=== PATIENT | male | born 1980 | race Caucasian/White ===

== ENCOUNTER 2017-07-02 09:28 | Day surgery (SDC) | payer BC ==
[2017-07-02] MEDS ORDERED: NALOXONE HCL 0.4 MG/ML INJ IVP PRN (10:01)
[2017-07-02] MEDS ORDERED: PROTAMINE SULFATE 50 MG/5 ML VIAL IVP PRN (10:01)
[2017-07-02] MEDS ORDERED: MEPERIDINE 25 MG/ML SYR IVP PRN (10:01)
[2017-07-02] MEDS ORDERED: FLUMAZENIL 0.5 MG/5 ML MDV IVP PRN (10:01)
[2017-07-02] MEDS ORDERED: MIDAZOLAM 2 MG/2 ML VIAL IVP PRN (10:01)
[2017-07-02] MEDS ORDERED: HEPARIN 10,000 UNIT/10 ML MDV IVP PRN (10:01)
[2017-07-02] MEDS ORDERED: ALTEPLASE 2 MG VIAL IVP PRN (10:01)
[2017-07-02] MEDS ORDERED: fentaNYL 100 MCG/2 ML INJ IVP PRN (10:01)
[2017-07-02] MEDS ORDERED: GLUCAGON HCL 1 MG VIAL IVP PRN (10:01)
[2017-07-02 10:12] VITALS: PULSE 77; RESP 16; TEMP 98.8
[2017-07-02] MEDS ORDERED: NS 1,000 ML IV SCH (10:15)
[2017-07-02] MEDS ORDERED: FLUMAZENIL 0.5 MG/5 ML MDV IVP ONE (11:15)
[2017-07-02] MEDS ORDERED: fentaNYL 100 MCG/2 ML INJ ONE (11:15)
[2017-07-02] MEDS ORDERED: MIDAZOLAM 2 MG/2 ML VIAL ONE (11:15)
[2017-07-02] MEDS ORDERED: ONDANSETRON 4 MG/2 ML VIAL ONE (11:15)
[2017-07-02] MEDS ORDERED: NALOXONE HCL 0.4 MG/ML INJ ONE (11:15)
--- NOTE | 2017-07-02 11:40 | PDGENHP ---
History & Physical Chief Complaint: RUE swelling History of Present Illness: 37 yo M w no significant PMH presents following an episode of signficant RUE swelling that began following yoga 2.5 wks ago. RUE DVT US and MRI were negative for thrombosis. Pt seen by Dr. Perez. 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 Swelling gradually improving. Recently placed on Pradaxa (held last night and this am). Referred to IR for venography and possible intervention. Pertinent Past, Social, Family History: Yoga 5 days/wk x 17 yrs Relevant Physical Exam: Mild RUE and shoulder swelling Cardiorespiratory Assessment: RRR, normal resp effort
--- NOTE | 2017-07-02 11:42 | PDPROPOC ---
Sedation Plan of Care Sedation Plan of Care: vital signs stable, mental status noted, patient educated of risks, benefits, alternatives, patient can tolerate sedation ASA Classification: ASA 1 Planned drugs: fentanyl, midazolam Mallampati Score: Class 1 Mallampati Reference Image: Patient passed 3-3-2 rule?: Yes
[2017-07-02 11:52] VITALS: O2SAT 98
[2017-07-02 12:11] VITALS: BP 108/64
[2017-07-02] MEDS ORDERED: IOPAMIDOL (ISOVUE-300) 100 ML BTL ONE (12:13)
--- NOTE | 2017-07-02 12:25 | PDRADPN ---
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 This was an unexpected fiunding given a negative DVT US two weeks ago and relatively mild upper extremity swelling on pre procedure physical exam. Basilic vein appears patent at elbow. Brachial is diminutive and the cephalic is not identified above the elbow. Pt needs catheter-directed thrombolysis, but Pradaxa held for only 24 hours, so procedure was aborted. Plan to return to tomorrow for venogram and thrombolysis around 1430 hrs after Pradaxa will have been held for a total of [address] Perez at 1205 hrs today, who agrees with the above plan. Inf/Abcess present in the surg proc area at time of surgery?: No
== END 2017-07-02 12:28 | disposition home or self-care (01) ==
LOC: FLAB 09:28 → FIMAGING 12:28
PROVIDERS: ATTEND Surgery
DX: Z53.8 Procedure and treatment not carried out for other reasons (principal); I82.621 Acute embolism and thrombosis of deep veins of right upper extremity
CPT/HCPCS: J1644; J2250; J2310; J2405; J3010; Q9967

== ENCOUNTER 2017-07-03 13:10 | Inpatient (IN) | payer BC ==
[2017-07-03] MEDS ORDERED: MEPERIDINE 25 MG/ML SYR IVP PRN (14:01)
[2017-07-03] MEDS ORDERED: PROTAMINE SULFATE 50 MG/5 ML VIAL IVP PRN (14:01)
[2017-07-03] MEDS ORDERED: ALTEPLASE 2 MG VIAL IVP PRN (14:01)
[2017-07-03] MEDS ORDERED: FLUMAZENIL 0.5 MG/5 ML MDV IVP PRN (14:01)
[2017-07-03] MEDS ORDERED: MIDAZOLAM 2 MG/2 ML VIAL IVP PRN (14:01)
[2017-07-03] MEDS ORDERED: NALOXONE HCL 0.4 MG/ML INJ IVP PRN ×2 (14:01→18:29)
[2017-07-03] MEDS ORDERED: GLUCAGON HCL 1 MG VIAL IVP PRN (14:01)
[2017-07-03] MEDS ORDERED: HEPARIN 10,000 UNIT/10 ML MDV IVP PRN (14:01)
--- NOTE | 2017-07-03 15:21 | PDGENHP ---
History & Physical Chief Complaint: DVT right arm History of Present Illness: Swelling for 3 1/2 weeks. Initial US at [facility] negative. Now with DVT. Relevant Physical Exam: Mild swelling of right arm. Good pulses and capillary refill. Cardiorespiratory Assessment: Lungs: clear to auscultation. Heart: RRR, no murmur, 60 bpm.
--- NOTE | 2017-07-03 15:21 | PDPROPOC ---
Sedation Plan of Care Sedation Plan of Care: vital signs stable, mental status noted, patient educated of risks, benefits, alternatives, patient can tolerate sedation ASA Classification: ASA 2 Planned drugs: fentanyl, midazolam Mallampati Score: Class 2 Mallampati Reference Image: Patient passed 3-3-2 rule?: Yes
[2017-07-03] MEDS: fentaNYL 100 MCG/2 ML INJ IVP PRN (15:37)
[2017-07-03] MEDS ORDERED: HEPARIN/DEXTROSE 25,000 UNIT/500 ML BAG ONE (16:14)
[2017-07-03] MEDS ORDERED: IOPAMIDOL (ISOVUE-300) 100 ML BTL ONE (16:16)
[2017-07-03] MEDS ORDERED: ALTEPLASE 5 MG in NS 100 ML IV SCH (16:30)
--- NOTE | 2017-07-03 16:46 | PDRADPN ---
Radiology Procedure Note Date of Procedure: 07/03/17 Radiologist: Navjot Mendoza Anesthesia: IV Sedation Pre-op Diagnosis: DVT RUE Post-op Diagnosis: Same Indication: Swelling, central DVT including subclavian and axillary veins Procedure: Catheter-directed venous thrombolysis of RUE Finding(s): Thrombosed right basilic, axillary and subclavian veins. Inf/Abcess present in the surg proc area at time of surgery?: No EBL: Minimal Complications: 0
[2017-07-03] MEDS ORDERED: LORazepam 1 MG TAB PO PRN (17:37)
[2017-07-03] MEDS ORDERED: ONDANSETRON 4 MG/2 ML VIAL IVP PRN (17:37)
[2017-07-03] MEDS ORDERED: HEPARIN/DEXTROSE 500 ML IV SCH (17:37)
[2017-07-03] MEDS ORDERED: BISACODYL 10 MG SUPP PR PRN (18:31)
[2017-07-03] MEDS ORDERED: MAGNESIUM HYDROXIDE 30 ML UDCUP PO PRN (18:31)
[2017-07-03] MEDS ORDERED: HYDROmorphONE/DILAUDID 6 MG/30 ML PCA IV ONE (18:33)
[2017-07-03] MEDS: HYDROmorphONE/DILAUDID 6 MG/30 ML PCA IV PRN (18:52)
[2017-07-03] MEDS: SENNOSIDES/DOCUSATE SODIUM TAB PO SCH (20:34)
[2017-07-03] MEDS: ALTEPLASE 5 MG in NS 100 ML IV SCH (20:51)
[2017-07-03] MEDS: PROMETHAZINE HCL 25 MG/ML INJ IVP PRN (20:55)
[2017-07-03 21:58] LABS: % IMMATURE GRANULYOCYTES 0.3 % (0.0-1.1); ABSOLUTE IMMATURE GRANULOCYTES 0.04 10^3/uL (0.00-0.10); ADD DIFF? NO; ADD MORPH? NO; ADD SCAN? NO; ATYPICAL LYMPHOCYTE FLAG 0 (0-99); FRAGMENT RBC FLAG 0 (0-99); HEMATOCRIT 42.6 % (40.0-51.0); HEMOGLOBIN 15.1 g/dL (13.7-17.5); LEFT SHIFT FLG 0 (0-99); LIPEMIA HEMOLYSIS FLAG 90 (0-99); MEAN CELL HEMOGLOBIN 31.9 pg (27.9-34.1); MEAN CELL HEMOGLOBIN CONCENTR. 35.4 g/dL (32.4-36.7); MEAN CELL VOLUME 89.9 fL (81.5-99.8); MEAN PLATELET VOLUME 10.4 fL (8.7-11.7); PLATELET CLUMPS FLAG 50 (0-99); PLATELET COUNT 219 10^3/uL (150-400); RED BLOOD CELL COUNT 4.74 10^6/uL (4.40-6.38)
[2017-07-03 22:15] LABS: CREATININE 0.9 mg/dL (0.7-1.3); GLOMERULAR FILTRATION RATE > 60
[2017-07-03 23:20] LABS: INR 1.25 (0.83-1.16); PROTIME(PATIENT) 15.9 SEC (12.0-15.0)
[2017-07-03 23:21] LABS: APTT 41.6 SEC (23.0-38.0)
[2017-07-04] MEDS: ALTEPLASE 5 MG in NS 100 ML IV SCH (02:54)
[2017-07-04 06:11] LABS: % IMMATURE GRANULYOCYTES 0.3 % (0.0-1.1); ABSOLUTE IMMATURE GRANULOCYTES 0.02 10^3/uL (0.00-0.10); ADD DIFF? NO; ADD MORPH? NO; ADD SCAN? NO; ATYPICAL LYMPHOCYTE FLAG 0 (0-99); FRAGMENT RBC FLAG 0 (0-99); HEMATOCRIT 42.5 % (40.0-51.0); HEMOGLOBIN 15.2 g/dL (13.7-17.5); LEFT SHIFT FLG 0 (0-99); LIPEMIA HEMOLYSIS FLAG 90 (0-99); MEAN CELL HEMOGLOBIN 32.8 pg (27.9-34.1); MEAN CELL HEMOGLOBIN CONCENTR. 35.8 g/dL (32.4-36.7); MEAN CELL VOLUME 91.8 fL (81.5-99.8); MEAN PLATELET VOLUME 10.6 fL (8.7-11.7); PLATELET CLUMPS FLAG 20 (0-99); PLATELET COUNT 200 10^3/uL (150-400); RED BLOOD CELL COUNT 4.63 10^6/uL (4.40-6.38)
[2017-07-04 06:29] LABS: APTT 46.5 SEC (23.0-38.0)
[2017-07-04] MEDS: SENNOSIDES/DOCUSATE SODIUM TAB PO SCH ×2 (07:52→23:17)
[2017-07-04] MEDS: HYDROmorphONE/DILAUDID 6 MG/30 ML PCA IV PRN (11:53)
[2017-07-04] MEDS ORDERED: fentaNYL 100 MCG/2 ML INJ ONE (12:32)
[2017-07-04] MEDS ORDERED: fentaNYL 100 MCG/2 ML INJ IVP PRN (12:39)
[2017-07-04] MEDS ORDERED: NALOXONE HCL 0.4 MG/ML INJ IVP PRN (12:39)
--- NOTE | 2017-07-04 12:39 | SOAPPROG ---
HEIDY Progress Note Assessment/Plan: Assessment: 37-year-old male with extensive right upper extremity DVT Underwent catheter embolization of venous thrombosis yesterday, going back to interventional Radiology today. Reports that he feels like blood flow was increasing in his right arm, swelling decreased. Using Dilaudid for pain. Comfortable, alert Right upper extremity with mild edema Plan: Seen examined by Dr. Stallworth, consult to follow. Plan is to await further interventional procedures, possibly continue anticoagulation and undergo 1st rib resection at a later date. Plan briefly discussed with patient. 07/04/17 12:37 Objective: Vital Signs Temp Pulse Resp BP Pulse Ox 36.5 C 62 14 115/70 92 07/04/17 11:57 07/04/17 12:28 07/04/17 12:28 07/04/17 12:28 07/04/17 12:28 Laboratory Results 07/04/17 05:45 07/03/17 21:30 07/03/17 07/04/17 07/05/17 05:59 05:59 05:59 Intake Total 2888.3 Output Total 1050 Balance 1838.3 PT 15.9 SEC (12.0-15.0) H 07/03/17 22:30 INR 1.25 (0.83-1.16) H 07/03/17 22:30 ICD10 Worksheet Patient Problems: Problems Problem Status Onset DVT of axillary vein, acute right Acute
[2017-07-04] MEDS: fentaNYL 100 MCG/2 ML INJ IVP PRN (12:43)
[2017-07-04] MEDS ORDERED: NS 1,000 ML IV SCH (12:45)
--- NOTE | 2017-07-04 13:27 | PDRADPN ---
Radiology Procedure Note Date of Procedure: 07/04/17 Radiologist: Navjot Mendoza Pre-op Diagnosis: DVT Right UE Post-op Diagnosis: Same Indication: Assess thrombolysis Procedure: Venography and catheter exchange Finding(s): 70% lysis of DVT. Residual axillary/subclavian clot. 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 We exchanged for a shorter EKOS infusion catheter and will reduce infusion rate to 0.5 mg/hr because of fibrinogen decrease to 102. Inf/Abcess present in the surg proc area at time of surgery?: No EBL: Minimal Complications: 0
--- NOTE | 2017-07-04 15:28 | ASMTCMCOM ---
CM Note CM Note Notes: Pt. is a 37-year-old man admitted for a DVT in his R arm. Going to IR today. Pt. lives w/ his Manda. SWer consulted w/ bedside RN. RN states Pt. will be independent at d/c. CM available should d/c POC change. Date Signed: 07/04/2017 03:28 PM Electronically Signed By:Maryuri Wolf LCSW
[2017-07-04 18:34] LABS: APTT 44.1 SEC (23.0-38.0)
[2017-07-04 20:20] LABS: FIBRINOGEN < 60 mg/dL (214-456)
[2017-07-04] MEDS: PROMETHAZINE HCL 25 MG/ML INJ IVP PRN (23:16)
[2017-07-05 00:39] LABS: APTT 64.3 SEC (23.0-38.0)
[2017-07-05 06:37] LABS: APTT 36.1 SEC (23.0-38.0)
[2017-07-05] MEDS ORDERED: FLUMAZENIL 0.5 MG/5 ML MDV IVP PRN (07:46)
[2017-07-05] MEDS ORDERED: MEPERIDINE 25 MG/ML SYR IVP PRN (07:46)
[2017-07-05] MEDS ORDERED: fentaNYL 100 MCG/2 ML INJ IVP PRN (07:46)
[2017-07-05] MEDS ORDERED: MIDAZOLAM 2 MG/2 ML VIAL IVP PRN (07:46)
[2017-07-05] MEDS ORDERED: HEPARIN 10,000 UNIT/10 ML MDV ONE (09:09)
[2017-07-05] MEDS ORDERED: IOPAMIDOL (ISOVUE-300) 100 ML BTL ONE (09:55)
--- NOTE | 2017-07-05 09:58 | PDRADPN ---
Radiology Procedure Note Date of Procedure: 07/05/17 Radiologist: Navjot Mendoza Anesthesia: Other (Specify) (IV fentanyl) Pre-op Diagnosis: DVT RUE Post-op Diagnosis: Resolved. Indication: Assess thrombolysis of RUE Procedure: Venography with positional maneuvers Finding(s): Resolution of venous thrombus in RUE. Severe stenosis of right subclavian vein Inf/Abcess present in the surg proc area at time of surgery?: No EBL: Minimal Complications: 0
[2017-07-05] MEDS ORDERED: HEPARIN 10,000 UNIT/10 ML MDV IVP PRN (10:01)
[2017-07-05] MEDS: HYDROmorphONE/DILAUDID 6 MG/30 ML PCA IV PRN (10:49)
[2017-07-05] MEDS: HEPARIN/DEXTROSE 500 ML IV SCH (11:00)
[2017-07-05] MEDS: SENNOSIDES/DOCUSATE SODIUM TAB PO SCH (14:55)
[2017-07-06] MEDS: HYDROmorphONE/DILAUDID 6 MG/30 ML PCA IV PRN (00:52)
[2017-07-06] MEDS: PROMETHAZINE HCL 25 MG/ML INJ IVP PRN (00:53)
[2017-07-06] MEDS: HEPARIN/DEXTROSE 500 ML IV SCH (02:30)
[2017-07-06 05:34] VITALS: TEMP 98.7
[2017-07-06] MEDS: SENNOSIDES/DOCUSATE SODIUM TAB PO SCH ×2 (05:44→09:37)
[2017-07-06] MEDS ORDERED: HYDROCODONE/APAP 5/325 TAB PO PRN (09:06)
[2017-07-06 10:56] VITALS: RESP 12; O2SAT 95
[2017-07-06 11:00] VITALS: PULSE 65
[2017-07-06] MEDS ORDERED: APIXABAN 5 MG TAB PO SCH (11:45)
[2017-07-06] MEDS ORDERED: APIXABAN 5 MG TAB PO ONE (12:00)
[2017-07-06 12:50] VITALS: BP 125/67
--- NOTE | 2017-07-06 13:21 | SOAPPROG ---
HEIDY Progress Note Assessment/Plan: Assessment: Right arm doing very well although still severe stenosis of the subclavian vein/ risks and options again fully discussed the patient Plan: Home a anticoagulation/right 1st rib resection and 3 weeks 07/06/17 13:20 Objective: Vital Signs Temp Pulse Resp BP Pulse Ox 37.1 C 65 12 125/67 H 95 07/06/17 02:00 07/06/17 12:00 07/06/17 12:00 07/06/17 12:00 07/06/17 12:00 Laboratory Results 07/04/17 05:45 07/03/17 21:30 07/05/17 07/06/17 07/07/17 05:59 05:59 05:59 Intake Total 1349 2398 Output Total 2900 3500 425 Balance -1551 -1102 -425 PT 15.9 SEC (12.0-15.0) H 07/03/17 22:30 INR 1.25 (0.83-1.16) H 07/03/17 22:30 ICD10 Worksheet Patient Problems: Problems Problem Status Onset DVT of axillary vein, acute right Acute
== END 2017-07-06 13:45 | disposition home or self-care (01) | DRG 272 ==
LOC: FIMAGING 13:10 → F2N 16:45
PROVIDERS: ADMIT Surgery; ATTEND Surgery
PROC: 03C Upper Arteries, Extirpation (ICD-10-PCS; principal; 2017-07-03)
PROC: 03C53ZZ Extirpation of Matter from Right Axillary Artery, Percutaneous Approach (ICD-10-PCS; principal; 2017-07-03)
PROC: B51M1ZA Fluoroscopy of Right Upper Extremity Veins using Low Osmolar Contrast, Guidance (ICD-10-PCS; 2017-07-04)
PROC: B51M1ZA Fluoroscopy of Right Upper Extremity Veins using Low Osmolar Contrast, Guidance (ICD-10-PCS; 2017-07-05)
DX: I82.B11 Acute embolism and thrombosis of right subclavian vein (principal); I70.8 Atherosclerosis of other arteries
CPT/HCPCS: 85520-90; C1757; C1769; C1894; J1170; J1644; J2250; J2310; J2405; J2550; J2997; J3010; Q9967

== ENCOUNTER 2017-07-07 17:56 | Emergency (ER) | payer BC ==
[2017-07-07 18:02] VITALS: TEMP 98.6
[2017-07-07] MEDS ORDERED: NS 1,000 ML IV ONE (18:15)
[2017-07-07] MEDS ORDERED: IOPAMIDOL (ISOVUE 370) 100 ML BTL IV ONE (18:22)
--- NOTE | 2017-07-07 18:23 | EDPHY ---
H & P Time Seen by Provider: 07/07/17 18:03 HPI/ROS: HPI Shortness of breath. 37-year-old male by private vehicle with his . This patient was just recently admitted and treated at our hospital for a right upper extremity subclavian DVT. He was just discharged 2 days ago. He is currently on Eliquis. 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 He is to have surgery to free impingement on his subclavian vein by Dr. Todd Stallworth in the next couple of weeks. He underwent a interventional radiology procedure by Dr. Navjot Mendoza treat and removed the clot. He reports that he felt well yesterday but today noticed that he felt short of breath. He reports that this is worse with exertion. He denies any chest pain or chest discomfort. No cough. No fever. No other complaint. ROS: Constitutional: No fever, no chills. No weakness. Eyes: No discharge. No changes in vision. ENT: No sore throat. No nasal congestion or rhinorrhea. Respiratory: No cough. As above. Cardiac: No chest pain, no palpitations. Gastrointestinal: No abdominal pain, no vomiting, no diarrhea. Genitourinary: No hematuria. No dysuria or increased frequency with urination. Musculoskeletal: No back pain. No neck pain. No myalgias or arthralgias. Skin: No rashes. Neurological: No headache. No focal weakness or altered sensation. Past medical history: No other significant past medical history. As above. Social history: Nonsmoker. No alcohol. Here with his . Physical Exam: General Appearance: Alert, no distress. This patient is responding to questions appropriately and in full sentences. This patient appears well- hydrated and well-nourished. Eyes: Pupils equal and round no pallor or injection. No lid edema, erythema or injection. Respiratory: There are no retractions, lungs are clear to auscultation with good air movement bilaterally. Cardiovascular: Regular rate and rhythm. No murmur. Neurological: Motor sensory function is grossly intact. Cranial nerves are normal. Gait is normal. Skin: Warm and dry, no rashes. Musculoskeletal: Neck is supple and nontender. Extremities are symmetrical. All joints range without pain or impingement. Psychiatric: No agitation. No depression. Database: EKG: EKG time is 7:15 p.m.; EKG shows a narrow complex normal sinus rhythm with a ventricular rate of 75. The LA, QRS, QT intervals are within normal limits. There are no ST-T wave changes indicative of ischemic or injury pattern. No evidence of right heart strain. Interpreted by me. Imaging: CT angiogram of chest: Very small right lower lobe pulmonary embolism measuring 2-3 mm. Doubtful this is a source of the patient's shortness of breath. No other significant findings that are acute. Extensive collateralization from chronic subclavian clot on the right. Otherwise negative. Results were discussed with staff radiologist Dr. Kevin Booker. Procedures: Emergency department course: Medical record reviewed. He has a normal creatinine of 0.9 from just a couple of days ago. An IV was started. Vital signs reviewed and are normal. He was started on IV normal saline with 1000 cc to be given over the next hour. He will be sent for CT angiogram of his chest to evaluate for pulmonary embolism. 7:35 p.m., patient re-evaluated. Resting comfortably at this time. Vital signs reviewed and are normal. Results of CT scan discussed with him and his . Plan will be to discharge to home. He will follow up with his surgeon for further management as noted above. He has been instructed to continue his Eliquis as prescribed. Return to emergency department precautions reviewed with him. All of his questions were answered. He was discharged in good condition. 8:00 p.m., informed by staff radiologist Dr. Kevin Booker of late finding on CT scan, small spiculated nodule right upper lobe. Dr. Ahuja advises noncontrast CT in 6 months for follow-up. Patient was contacted by our nursing staff and made aware of this. Differential Diagnosis: The differential diagnosis on this patient includes but is not limited to pulmonary embolism, pleurisy, musculoskeletal pain. Acute coronary syndrome, pneumonia, pneumothorax unlikely. This represents a partial list of diagnoses considered. These considerations are based on history, physical exam, past history, reassessment and diagnostic testing. Smoking Status: Former smoker Constitutional: Initial Vital Signs Temperature (C) 37 C 07/07/17 17:59 Heart Rate 75 12 17:59 Respiratory Rate 18 12 17:59 Blood Pressure 114/78 12 17:59 O2 Sat (%) 95 12/10/17 17:59 O2 Delivery Mode Room Air Allergies/Adverse Reactions: No Known Allergies Allergy (Verified 07/07/17 17:59) Home Medications: Medication Instructions Recorded Apixaban [Eliquis] 5 mg PO BID #30 tab 07/06/17 Hydrocodone/APAP 5/325 [[place] 1 - 2 tab PO Q4H PRN #20 tab 07/06/17 5/325 (*)] Medical Decision Making - Data Points Medications Given: Discontinued Medications Sodium Chloride (Ns) 1,000 mls @ 0 mls/hr IV EDNOW ONE; Wide Open PRN Reason: Protocol Stop: 07/07/17 18:16 Last Admin: 07/07/17 18:36 Dose: 1,000 mls Departure - Departure Disposition: Home, Routine, Self-Care Clinical Impression: Dyspnea, History of right subclavian vein DVT, Pulmonary embolism Condition: Good Instructions: Deep Venous Thrombosis (ED) Additional Instructions: Read and follow provided instructions. Follow-up with Dr. Todd Stallworth as scheduled for further management. Take Eliquis as prescribed. Return to the emergency department for worsening symptoms, worsening shortness of breath, chest pain, fever or other serious concerns. Referrals: Navjot Stallworth MD [Medical Doctor] - As per Instructions
--- NOTE | 2017-07-07 19:17 | CPEKG ---
Heart Rate: 75 RR Interval: 800 P-R Interval: 148 QRSD Interval: 108 QT Interval: 392 QTC Interval: 438 P [place]: -3 QRS [place]: 83 T Wave [place]: 31 EKG Severity - NORMAL ECG - EKG Impression: SINUS RHYTHM Electronically Signed By: Abdirizak Meng 07-Jul-2017 20:35:32
[2017-07-07 19:43] VITALS: BP 130/78; PULSE 61; RESP 20; O2SAT 96
== END 2017-07-07 19:49 | disposition home or self-care (01) ==
DX: I26.99 Other pulmonary embolism without acute cor pulmonale (principal); E86.9 Volume depletion, unspecified; Z86.718 Personal history of other venous thrombosis and embolism; Z87.891 Personal history of nicotine dependence
CPT/HCPCS: Q9967

== ENCOUNTER 2017-07-26 05:37 | Inpatient (IN) | payer BC ==
--- NOTE | 2017-07-23 18:21 | GCON ---
[f rep st] CONSULTATION DATE OF CONSULTATION: 07/04/2017 REASON FOR CONSULTATION: The patient is a 37-year-old male, who presented with a markedly swollen right arm, was found to have a significant DVT involving the brachial vein and axillary and subclavian veins. He had a previous evaluation 2 -1/2 weeks ago, which was negative for clot and has been on Pradaxa. He is admitted at this time for thrombolysis and evaluation. PAST MEDICAL/SURGICAL HISTORY: No other major medical issues or surgeries. REVIEW OF SYSTEMS: Reveals no other major medical problems on a full 10-point review of systems. Specifically, he is a nonsmoker. Denies any cardiopulmonary issues or symptoms. ALLERGIES: None. MEDICATIONS: Pradaxa. PHYSICAL EXAMINATION: GENERAL: An alert, healthy 37-year-old male, who is in no acute distress, but is somewhat anxious about his situation. VITAL SIGNS: He is afebrile. HEENT: Reveals some dilated veins in the supraclavicular area. He has no adenopathy, no thyromegaly, and no oral lesions. Pupils are normal. NECK: Supple with full range of motion, nontender. CHEST: Clear to auscultation and percussion. CARDIAC: Regular rhythm. ABDOMEN: Soft and nontender. EXTREMITIES: Reveal full range of motion, full pulses. His right arm is somewhat swollen and difficult to examine because of the obvious thrombolytics running in his right arm. He has some persistent swelling, although the patient relates that it is much less than it was. 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 I would recommend a 1st rib resection in 3-4 weeks after his damage from his deep venous thromboses is somewhat mitigated. He fully understands and accepts the risks of surgery and requests that we proceed down the line. He would, in fact, like to do it much sooner, but I have recommended that we allow some of the inflammation to resolve before going into surgery. If he should reclot in the interim, then I think he should have a 1st rib resection prior to repeat thrombolysis, although that would certainly still have some risk involved. We will follow him as an outpatient. /[id number]/MODL MTDD
[2017-07-26] MEDS ORDERED: ceFAZolin 2 GM/SWFI 2 GM/20 ML SYR IVP ONE (05:47)
[2017-07-26] MEDS ORDERED: LIDOCAINE 1% 2 ML INJ ONE (05:52)
[2017-07-26] MEDS ORDERED: THROMBIN (BOVINE) 5,000 UNIT VIAL TP ONE (06:02)
[2017-07-26] MEDS ORDERED: BUPIVACAINE 0.5% 30 ML SDV ONE (06:03)
--- NOTE | 2017-07-26 06:40 | PDANEPAE ---
ANE History of Present Illness 37 year old male w/ recent DVT of right upper extremity who presents for 1st rib resection. ANE Past Medical History - Cardiovascular History Hx Hypertension: No Hx Arrhythmias: No Hx Chest Pain: No Hx Coronary Artery / Peripheral Vascular Disease: No Hx CHF / Valvular Disease: No Hx Palpitations: No - Pulmonary History Hx COPD: No Hx Asthma/Reactive Airway Disease: No Hx Recent Upper Respiratory Infection: No Hx Oxygen in Use at Home: No Hx Sleep Apnea: Yes Sleep Apnea Screening Result - Last Documented: Negative - Neurologic History Hx Cerebrovascular Accident: No Hx Seizures: No Hx Dementia: No - Endocrine History Hx Diabetes: No Hypothyroid: No Hyperthyroid: No Obesity: no - Renal History Hx Renal Disorders: No - Liver History Hx Hepatic Disorders: No - Neurological & Psychiatric Hx Hx Neurological and Psychiatric Disorders: No - Cancer History Hx Cancer: No - Congenital Disorder History Hx Congenital Disorders: No - GI History GERD: no Hx Gastrointestinal Disorders: No - Other Health History Other Health History: none - Chronic Pain History Chronic Pain: No - Surgical History Prior Surgeries: tonsillectomy ANE Review of Systems Review of systems is: negative Review of Systems: - Exercise capacity Exercise capacity: >=4 METS METS (RN): 6 METS ANE Patient History - Allergies Allergies/Adverse Reactions: No Known Allergies Allergy (Verified 07/07/17 17:59) - Home Medications Home medications: home medication list seen and reviewed - NPO status NPO Status: no food or drink >8 hours NPO Since - Liquids (Date): 07/25/17 NPO Since - Liquids (Time): 20:00 NPO Since - Solids (Date): 07/25/17 NPO Since - Solids (Time): 18:00 - Anes Hx Anes Hx: no prior problems - Smoking Hx Smoking Status: Former smoker - Alcohol Use Alcohol Use: Rarely - Family Anes Hx Family Anes Hx: neg - N/A Family Hx Anesthesia Complications: none ANE Labs/Vital Signs - Vital Signs Vital Signs: reviewed preoperatively; see RN documention for details Blood Pressure: 111/75 Heart Rate: 87 Respiratory Rate: 18 O2 Sat (%): 94 Height: 190.5 cm Weight: 81.647 kg ANE Physical Exam - Airway Neck exam: FROM Mallampati Score: Class 1 Mouth exam: normal dental/mouth exam Mouth image: 1 - Bonding on medial aspect of #9 - Pulmonary Pulmonary: no respiratory distress - Cardiovascular Cardiovascular: regular rate and rhythym - ASA Status ASA Status: III ANE Anesthesia Plan Anesthesia Plan: general endotracheal anesthesia Total IV Anesthesia: No
--- NOTE | 2017-07-26 06:48 | PDHPUP ---
History & Physical Update H&P update statement: This history and physical update is based on an assessment of the patient which was completed after admission or registration (within 24 hours), but prior to the surgery/procedure. updated
[2017-07-26] MEDS ORDERED: MIDAZOLAM 2 MG/2 ML VIAL IVP ONE (06:55)
[2017-07-26] MEDS ORDERED: LIDOCAINE 2% 5 ML SDV ONE (07:10)
[2017-07-26] MEDS ORDERED: ROCURONIUM 50 MG/5 ML VIAL ONE ×2 (07:10→08:02)
[2017-07-26] MEDS ORDERED: PROPOFOL 200 MG/20 ML VIAL ONE (07:10)
[2017-07-26] MEDS ORDERED: fentaNYL 100 MCG/2 ML INJ ONE ×4 (07:10→11:14)
[2017-07-26] MEDS ORDERED: DEXAMETHASONE 4 MG/ML VIAL ONE (07:24)
[2017-07-26] MEDS ORDERED: ONDANSETRON 4 MG/2 ML VIAL ONE (07:24)
[2017-07-26] MEDS ORDERED: ONDANSETRON 4 MG/2 ML VIAL IVP PRN ×2 (08:33→09:55)
[2017-07-26] MEDS ORDERED: NALOXONE HCL 0.4 MG/ML INJ IVP PRN (08:33)
[2017-07-26] MEDS ORDERED: LR 500 ML IV PRN (08:33)
[2017-07-26] MEDS ORDERED: ROCURONIUM 100 MG/10 ML VIAL ONE (08:36)
[2017-07-26] MEDS ORDERED: SUGAMMADEX SODIUM 200 MG/2 ML VIAL IVP ONE ×2 (09:19)
[2017-07-26] MEDS ORDERED: KETOROLAC 30 MG/1 ML SDV ONE (09:25)
[2017-07-26] MEDS ORDERED: OXYCODONE/APAP 5/325 TAB PO PRN (09:55)
[2017-07-26] MEDS ORDERED: ACETAMINOPHEN 325 MG TAB PO PRN (09:55)
[2017-07-26] MEDS ORDERED: HYDROmorphONE/DILAUDID 1 MG/ML INJ ONE (10:00)
[2017-07-26] MEDS: HYDROmorphONE/DILAUDID 1 MG/ML INJ IVP PRN ×4 (10:03→21:09)
--- NOTE | 2017-07-26 10:04 | POSTOPPROG ---
Post Op Note Date of Operation: 07/26/17 Surgeon: Navjot Stallworth Boilermaker Loftsman: Samuel Amaro Anesthesiologist: Dr Bhandari Anesthesia: GET(General Endotracheal) Pre-op Diagnosis: thoracic outlet/DVT Post-op Diagnosis: same Indication: pain, clot Procedure: right 1st rib resection, transaxillary, OR chest tube place/removed Findings: 1st rib Inf/Abcess present in the surg proc area at time of surgery?: No Depth: Organ Space EBL: 50-100
[2017-07-26] MEDS: fentaNYL 100 MCG/2 ML INJ IVP PRN ×4 (10:10→12:55)
--- NOTE | 2017-07-26 12:06 | POSTANESTH ---
Post Anesthetic Evaluation Cardiovascular Status: Normal, Stable, Similar to Pre-Op Cond Respiratory Status: Normal, Stable, Similar to Pre-op Cond. Level of Consciousness/Mental Status: Can Participate in Eval, Alert and Oriented Pain Control: Adequate, Prn Tx Ordered Nausea/Vomiting Control: Adequate, Prn Tx Ordered Complications Possibly Related to Anesthesia: None Noted
[2017-07-26] MEDS: KETOROLAC 15 MG/1 ML SDV IVP SCH ×2 (13:42→17:26)
[2017-07-26] MEDS: ceFAZolin 2 GM/DEXTROSE 100 ML IV SCH ×2 (15:22→21:11)
[2017-07-26] MEDS ORDERED: PROMETHAZINE HCL 25 MG/ML INJ IVP ONE (15:47)
[2017-07-26] MEDS: D5W 1/2 NS W/ 20 KCl/L 1,000 ML IV SCH ×2 (15:53→22:47)
[2017-07-26 19:47] VITALS: RESP 16
[2017-07-26] MEDS: HYDROCODONE/APAP 5/325 TAB PO PRN (22:48)
[2017-07-27] MEDS ORDERED: PROMETHAZINE HCL 25 MG TAB PO PRN (00:09)
[2017-07-27] MEDS: KETOROLAC 15 MG/1 ML SDV IVP SCH ×3 (00:14→11:05)
[2017-07-27] MEDS ORDERED: PROMETHAZINE HCL 25 MG/ML INJ IVP PRN (00:24)
[2017-07-27] MEDS: HYDROCODONE/APAP 5/325 TAB PO PRN ×2 (03:44→08:16)
[2017-07-27 08:10] VITALS: BP 122/71; PULSE 59; TEMP 98; O2SAT 97
--- NOTE | 2017-07-27 11:34 | SOAPPROG ---
SOSONG Progress Note Assessment/Plan: Assessment: s/p 1st rib resection doing very well DC home F/U with dr gary in 1-2 weeks RX for [place] qty 30 Incision cdi Good rom Plan: 07/27/17 11:33 Objective: Vital Signs Temp Pulse Resp BP Pulse Ox 36.7 C 59 L 16 122/71 H 97 07/27/17 08:00 07/27/17 08:00 07/27/17 08:00 07/27/17 08:00 07/27/17 08:00 07/26/17 07/27/17 07/28/17 05:59 05:59 05:59 Intake Total 2220 Output Total 300 Balance 1920 ICD10 Worksheet Patient Problems: Problems Problem Status Onset DVT of axillary vein, acute right Acute
--- NOTE | 2017-07-27 16:03 | ASDISCHSUM ---
Discharge Information Plan Status:Home with No Needs Medically Cleared to Leave:07/26/2017 Discharge Date:07/27/2017 11:50 AM CM D/C Disposition:Home, Routine, Self-Care ADT D/C Disposition:Home, Routine, Self-Care Projected Discharge Date:07/27/2017 11:50 AM Transportation at D/C:Family Discharge Delay Reason: Follow-Up Date:07/27/2017 11:50 AM Discharge Slot: Final Diagnosis: Placement Information Patient Contact Information Contact Name:WENDY Relationship: Address:[address] Work Phone: City:[place] Phone: State/Zip Code:[place] [address] Email: Financial Information Financial Class:HMO and PPO Plans Primary Plan Desc: OUT OF STATE PPO Primary Plan Number:[id number] Secondary Plan Desc: Secondary Plan Number: Assessment Information Case Management Discharge Plan Note Case Management Discharge Discharge Order Complete? Answers: Yes Patient to Obtain Answers: Independently Medications Transportation Arranged Answers: Family/Friends Discharge Comments Notes: Pt s/p R rib resection for thoracic outlet syndrome. Discharging home today with no CM needs. Date Signed: 07/27/2017 04:02 PM Electronically Signed By:BI Carmona Intervention Information
--- NOTE | 2017-07-30 11:48 | GOP ---
[f rep st] OPERATIVE REPORT DATE OF OPERATION: 07/26/2017 SURGEON: Navjot Stallworth MD PRESSER AND BLOCKER KNITTED GOODS: AELE Ulrich. ANESTHESIOLOGIST: Ramon Bhandari MD. PREOPERATIVE DIAGNOSIS: Thoracic outlet syndrome with history of subclavian thrombosis. POSTOPERATIVE DIAGNOSIS: Thoracic outlet syndrome with history of subclavian thrombosis. PROCEDURE PERFORMED: Transaxillary first rib resection. FINDINGS: The patient was found to have thickened fibrous tissue over the thoracic outlet. The vein appeared to be open. Exposure overall was somewhat difficult because of the deepness and the narrow ness of his axillary tunnel. DESCRIPTION OF PROCEDURE: The patient was taken to the operating room, where he received satisfactor y general endotracheal anesthesia. He was placed in the left lateral decubitus position at approxima tely a 60-degree angle. His arm and chest were prepped with ChloraPrep. He was prepped and draped i n the usual sterile manner. His right arm was then suspended by the Omni retractor in a vertical dir ection. A short incision was made at the base of the axilla, and dissection was carried down through the subcutaneous tissue down to the chest wall. Dissection along the chest wall extended up to the apex of the axilla. The 1st rib was identified. The neurovascular structures were all identified. The base of the 1st rib was exposed with electrocautery. Then, using periosteal elevator and Goodrich el evator, the rib was freed up from attachments to the pleura. The vessels and nerves were retracted c ephalad, and the top edge of the rib was exposed. The anterior scalene muscle was hooked with a righ t angle and divided with electrocautery, as were other fibrous bands of the thoracic inlet. The 1st rib was then skeletonized and exposed as far as possible anteriorly and as far as possible posteriorl y as could be safely visualized. The anterior dissection was quite complete. The subclavius tendon was divided with electrocautery, and the rib was divided anteriorly. It was retracted outward, and t he posterior end of the rib was exposed. This was divided with a crib tender. Exposure there was chastity ewhat limited because of his musculature, but the nerve roots were elevated, and the rib was divided with the crib tender and then removed. The rib was further shortened with rongeurs, taking off anothe r centimeter posteriorly, and the edge was smoothed out with a rasp. Anteriorly, a small amount was taken with a rongeur as well, up to the cartilaginous joint. This was whittled back with the rongeur and also smoothed out with a rasp. Fibrous tissue around the vein was freed up with electrocautery as much as could safely be done. The cut ends of the bone were covered with bone wax. Hemostasis wa s assured. A catheter was placed in the pleural cavity. The wound was infiltrated with 0.5% Marcain e. Some topical thrombin was placed in the wound. The wound was closed in layers, using 3-0 Vicryl for the subcutaneous tissue and 4-0 Monocryl subcuticular stitch for the skin. A 24 chest tube was p laced in the pleural cavity, and a Valsalva was done. The tube was removed quickly as the subcutaneo us suture was tied down. The wound was further infiltrated with 0.5% Marcaine. The skin was closed with 4-0 Monocryl subcuticular stitch. There were no complications. He tolerated the procedure well . /[id number]/MODL
== END 2017-07-27 11:50 | disposition home or self-care (01) | DRG 29 ==
LOC: F3E 05:37
PROVIDERS: ADMIT Surgery; ATTEND Surgery
PROC: 0PT10ZZ Resection of 1 to 2 Ribs, Open Approach (ICD-10-PCS; principal; 2017-07-26 07:15)
DX: G54.0 Brachial plexus disorders (principal); J95.811 Postprocedural pneumothorax; I82.B11 Acute embolism and thrombosis of right subclavian vein; Z79.01 Long term (current) use of anticoagulants
CPT/HCPCS: J0690; J1100; J1170; J1885; J2250; J2405; J2550; J2704; J3010

== ENCOUNTER → 2017-08-01 | Outpatient (CLI) | payer BC | LOC: FIMAGING 11:33 | PROVIDERS: ATTEND Surgery | DX: J93.9 Pneumothorax, unspecified (principal) ==

== ENCOUNTER 2018-12-20 06:44 | Emergency (ER) | payer BC ==
[2018-12-20] MEDS ORDERED: NS 500 ML IV ONE (06:56)
[2018-12-20 07:08] LABS: PLATELET COUNT 207 10^3/uL (150-400)
[2018-12-20 07:16] LABS: INR 1.02 (0.83-1.16)
--- NOTE | 2018-12-20 07:29 | EDPHY ---
H & P Time Seen by Provider: 12/20/18 06:55 HPI/ROS: HPI Chest tightness, heart beating strongly. 38-year-old male by private vehicle. 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 He has had his 1st rib removed. He is not on any antiplatelet or anticoagulant medications. He presents to the emergency department this morning stating that last night he had a sensation of his heart pounding in his chest noticed at about 10:00 p.m.. He states that he had some mild shortness of breath associated with this. He describes this as his heart beating very strongly. He reports that this continued through the night but he was able to sleep. He reports that then this morning in associates whom with this he had what he describes as a tightness isolated in his mid left pectoral muscle approximately the 2nd to 3rd intercostal space midclavicular line. He reports he is feeling better now. He does report he has been under stress but states that he has had panic attacks in the past and this does not feel like a panic attack. He does not have any significant cardiac risk factors. No history of diabetes, hyperlipidemia or hypertension. No significant family history of coronary artery disease. No history of smoking. He does not use IV drugs or street drugs. ROS: Constitutional: No fever, no chills. No weakness. Eyes: No discharge. No changes in vision. ENT: No sore throat. No nasal congestion or rhinorrhea. Respiratory: No cough. As above. Cardiac: As above, no palpitations. Gastrointestinal: No abdominal pain, no vomiting, no diarrhea. Genitourinary: No hematuria. No dysuria or increased frequency with urination. Musculoskeletal: No back pain. No neck pain. No myalgias or arthralgias. Skin: No rashes. Neurological: No headache. No focal weakness or altered sensation. Past medical history: As above. Social history: He is currently here by himself. No alcohol. Denies IV drugs or street drugs. Nonsmoker. Physical Exam: General Appearance: Alert, he is mildly anxious. This patient is responding to questions appropriately and in full sentences. This patient appears well- hydrated and well-nourished. Eyes: Pupils equal and round no pallor or injection. No lid edema, erythema or injection. Respiratory: There are no retractions, lungs are clear to auscultation with good air movement bilaterally. Cardiovascular: Regular rate and rhythm. No murmur. His chest wall is stable on palpation. There is no focal reproducible tenderness on palpation of his chest wall. No soft tissue changes noted on gross inspection. Gastrointestinal: Abdomen is soft and nontender, no masses, bowel sounds normal. No focal tenderness at McBurney's point. No Lara sign. Neurological: Motor sensory function is grossly intact. Cranial nerves are normal. Gait is normal. Skin: Warm and dry, no rashes. Musculoskeletal: Neck is supple and nontender. Extremities are symmetrical. All joints range without pain or impingement. Psychiatric: No agitation. No depression. Database: EKG: EKG time is 6:53 a.m.; EKG shows a narrow complex normal sinus rhythm with a ventricular rate of 68. Possible left ventricular hypertrophy. The ND, QRS, QT intervals are within normal limits. There are no ST-T wave changes indicative of ischemic or injury pattern. No evidence of right heart strain. Interpreted by me. Imaging: Chest x-ray AP portable: The cardiac mediastinal silhouette is unremarkable. No evidence of infiltrate or pneumothorax. No acute cardiopulmonary disease process. Interpreted by me. Procedures: Emergency department course: Triage vital signs reviewed and are unremarkable. The patient is afebrile. IV was placed. He was placed on a radiation monitor. I did offer him something for anxiety but he declines this. EKG obtained and reviewed by myself. The patient is low risk by heart score. 9:00 a.m., patient re-evaluated. Re-evaluation delayed secondary to critical patient in the department. He is resting comfortably at this time. Denies any shortness of breath or chest pain currently. Results of his emergency department workup discussed with him. Acute coronary syndrome unlikely. Pulmonary embolism unlikely. At this time he does feel comfortable going home. I will refer him to [facility] for re-evaluation in their clinic early this coming week. He is in agreement with this plan. I also told him I would prescribe him a short course of Ativan to be taking at night to help him with sleeping and anxiety relief. He is in agreement with this. He feels comfortable going home at this time. He understands his follow-up. Return to emergency department precautions of thoroughly been reviewed with him. All of his questions were answered. He was discharged from the emergency department in good condition. Differential Diagnosis: The differential diagnosis on this patient includes but is not limited to anxiety reaction, pleurisy, musculoskeletal etiology of chest wall pain. Acute coronary syndrome, pulmonary embolism, aortic dissection, pneumothorax, pneumonia unlikely. This represents a partial list of diagnoses considered. These considerations are based on history, physical exam, past history, reassessment and diagnostic testing. Smoking Status: Former smoker Constitutional: Initial Vital Signs Temperature (C) 37.0 C 12/20/18 06:45 Heart Rate 78 12/20/18 06:45 Respiratory Rate 18 12/20/18 06:45 Blood Pressure 155/87 H 12/20/18 06:45 O2 Sat (%) 94 12/20/18 06:45 O2 Delivery Mode Room Air Allergies/Adverse Reactions: codeine Allergy (Verified 12/20/18 06:46) Home Medications: Medication Instructions Recorded LORazepam [Ativan] 1 mg PO HS #7 tablet 12/20/18 Medical Decision Making - Diagnostics Imaging Results: Imaging Impressions Chest X-Ray 12/20/18 06:56 Impression: 1. No active cardiopulmonary disease seen. - Data Points Laboratory Results: Laboratory Results 12/20/18 07:00 12/20/18 07:00 12/20/18 12/20/18 12/20/18 07:06 07:00 07:00 WBC RBC Hgb Hct MCV MCH MCHC RDW Plt Count MPV Neut % (Auto) Lymph % (Auto) Williams % (Auto) Eos % (Auto) Baso % (Auto) Nucleat RBC Rel Count Absolute Neuts (auto) Absolute Lymphs (auto) Absolute Monos (auto) Absolute Eos (auto) Absolute Basos (auto) Absolute Nucleated RBC Immature Gran % Immature Gran # PT 13.0 SEC SEC (12.0-15.0) INR 1.02 (0.83-1.16) APTT 25.8 SEC SEC (23.0-38.0) D-Dimer 0.31 ug/mLFEU ug/mLFEU (0.00-0.50) Sodium 137 mEq/L mEq/L (135-145) Potassium 3.7 mEq/L mEq/L (3.5-5.2) Chloride 99 mEq/L mEq/L (97-110) Carbon Dioxide 28 mEq/l mEq/l (22-31) Anion Gap 10 mEq/L mEq/L (6-14) BUN 17 mg/dL mg/dL (7-23) Creatinine 1.1 mg/dL mg/dL (0.7-1.3) Estimated GFR > 60 Glucose 111 mg/dL H mg/dL (70-100) Calcium 9.5 mg/dL mg/dL (8.5-10.4) POC Troponin I 0.01 ng/mL ng/mL (0.00-0.08) 12/20/18 07:00 WBC 5.72 10^3/uL 10^3/uL (3.80-9.50) RBC 5.05 10^6/uL 10^6/uL (4.40-6.38) Hgb 16.1 g/dL g/dL (13.7-17.5) Hct 46.2 % % (40.0-51.0) MCV 91.5 fL fL (81.5-99.8) MCH 31.9 pg pg (27.9-34.1) MCHC 34.8 g/dL g/dL (32.4-36.7) RDW 13.2 % % (11.5-15.2) Plt Count 207 10^3/uL 10^3/uL (150-400) MPV 9.8 fL fL (8.7-11.7) Neut % (Auto) 62.6 % % (39.3-74.2) Lymph % (Auto) 25.0 % % (15.0-45.0) Williams % (Auto) 10.8 % % (4.5-13.0) Eos % (Auto) 0.5 % L % (0.6-7.6) Baso % (Auto) 0.9 % % (0.3-1.7) Nucleat RBC Rel Count 0.0 % % (0.0-0.2) Absolute Neuts (auto) 3.58 10^3/uL 10^3/uL (1.70-6.50) Absolute Lymphs (auto) 1.43 10^3/uL 10^3/uL (1.00-3.00) Absolute Monos (auto) 0.62 10^3/uL 10^3/uL (0.30-0.80) Absolute Eos (auto) 0.03 10^3/uL 10^3/uL (0.03-0.40) Absolute Basos (auto) 0.05 10^3/uL 10^3/uL (0.02-0.10) Absolute Nucleated RBC 0.00 10^3/uL 10^3/uL (0-0.01) Immature Gran % 0.2 % % (0.0-1.1) Immature Gran # 0.01 10^3/uL 10^3/uL (0.00-0.10) PT INR APTT D-Dimer Sodium Potassium Chloride Carbon Dioxide Anion Gap BUN Creatinine Estimated GFR Glucose Calcium POC Troponin I Medications Given: Discontinued Medications Sodium Chloride (Ns) 500 mls @ 1,000 mls/hr IV EDNOW ONE PRN Reason: Protocol Stop: 12/20/18 07:25 Last Admin: 12/20/18 07:03 Dose: 500 mls Point of Care Test Results: Chemistry 12/20/18 07:06 POC Troponin I 0.01 ng/mL ng/mL (0.00-0.08) Departure - Departure Disposition: Home, Routine, Self-Care Clinical Impression: Palpitations, Chest discomfort Condition: Good Instructions: Chest Pain (ED) Additional Instructions: Read and follow provided instructions. I have forwarded a request for cardiology evaluation by our cardiology group. They should contact you on Saturday morning for appointment time Saturday or Saturday. Your testing in the emergency department is reassuring. However, given her complaint I feel it is prudent that you see a business advisor this coming week for further evaluation. Ativan/lorazepam 1 mg tablets: You can take 1 prior to sleeping at night to help you sleep and relieve stress and anxiety. Do not drive on this medication. Return to the emergency department for worsening symptoms, worsening chest pain , shortness of breath or other serious concerns. Referrals: [facility] [Provider Group] - As per Instructions Prescriptions: LORazepam [Ativan] 1 mg PO HS #7 tablet
[2018-12-20 09:39] VITALS: BP 114/77
--- NOTE | 2018-12-23 06:32 | CPEKG ---
Test Reason : OPEN Blood Pressure : / mmHG Vent. Rate : 068 BPM Atrial Rate : 068 BPM P-R Int : 145 ms QRS Dur : 106 ms QT Int : 410 ms P-R-T Axes : 063 089 043 degrees QTc Int : 437 ms Sinus rhythm Probable left ventricular hypertrophy Confirmed by Bar Calderon ([id number]) on 12/23/2018 6:31:11 AM Referred By: Abdirizak Meng Confirmed By:Bar Calderon
== END 2018-12-20 09:37 | disposition home or self-care (01) ==
DX: R07.89 Other chest pain (principal); E86.9 Volume depletion, unspecified
CPT/HCPCS: 84484-ER